=== PATIENT | female | born 1995 | race African-American/Black ===

== ENCOUNTER 2017-06-07 10:06 | Day surgery (SDC) | payer OTHER ==
[2017-06-07 10:51] VITALS: BP 110/67; TEMP 98.3; BMI 31.3
--- NOTE | 2017-06-07 13:50 | ULT ---
OBSTETRICAL ULTRASOUND WITH BIOPHYSICAL PROFILE EVALUATION: Date: 06/07/17 INDICATION; No care. FINDINGS: There is a single live intrauterine gestation in vertex presentation. Placenta is anterior in locatio n without evidence of previa. LUBNA is noted at 9.6 cm. heart rate is 141 beats/minute. There is limited survey due to the advanced gestational age. head, four chamber heart, st omach, visualized kidneys, bladder, and three vessel cord appear within normal limits. Estimated gestational age based on biometrics is 33 weeks/5 days with estimated due date of . The estimated weight is 2,248 gm, +/- 333 gm (4 lbs, 15 oz, +/- 12 oz). The biparietal diameter, head circumference, abdominal circumference, and femoral length measured at a similar appearing age range. The fetus received 2 out of 2 for tone, 2 out of 2 for breathing, 2 out of 2 for mo vement, and 2 out of 2 for amniotic fluid level. IMPRESSION: 1. Single live intrauterine gestation with size and dates as above. 2. biophysical profile 8 out of 8. 3. Limited survey due to advanced age. POS: [facility]
== END 2017-06-07 16:30 | disposition home or self-care (01) ==
LOC: L&D/OP 10:06
PROVIDERS: ATTEND Family Medicine
DX: O36.8130 Decreased fetal movements, third trimester, not applicable or unspecified (principal); Z3A.33 33 weeks gestation of pregnancy; Z79.899 Other long term (current) drug therapy
CPT/HCPCS: 59025; 76805; 76819

== ENCOUNTER 2017-06-11 10:08 | Day surgery (SDC) | payer MEDICAID, OTHER, SELFPAY ==
[2017-06-11 10:35] VITALS: BP 107/63; TEMP 98.7; BMI 31.3
--- NOTE | 2017-06-11 15:01 | ULT ---
BIOPHYSICAL PROFILE: Date: 06/11/17 INDICATION: Intrauterine growth retardation. FINDINGS: There is a single, live intrauterine gestation in vertex presentation. Cardiac activity is noted at 1 31 beats/minute. The fetus received 2 out of 2 for movement, 2 out of 2 for tone, 2 out of 2 for raysa athing, and 2 out of 2 for LUBNA. LUBNA was noted at 8.1 cm. Sampled umbilical artery systolic/diastolic ratio was measured between 2.06-2.31. Sampled resistive index within umbilical artery measures 0.41-0.51. Low resistive waveform is seen on color Doppler leelee ges. Pulsatility index measured from 0.59-0.90. IMPRESSION: Biophysical profile score is 8 out of 8. POS: [facility]
== END 2017-06-11 12:56 | disposition home or self-care (01) ==
LOC: L&D/OP 10:08
PROVIDERS: ATTEND Family Medicine
DX: O36.5990 Maternal care for other known or suspected poor fetal growth, unspecified trimester, not applicable or unspecified (principal); Z3A.00 Weeks of gestation of pregnancy not specified
CPT/HCPCS: 59025; 76819